=== PATIENT | male | born 1995 | race Caucasian/White ===

== ENCOUNTER 2020-08-29 12:28 | Emergency (ER) | payer OTHER, SELFPAY ==
[2020-08-29 13:05] VITALS: BP 136/98; PULSE 126; RESP 16; TEMP 37.1; O2SAT 98
--- NOTE | 2020-08-29 13:31 | ED.PSYCH ---
HPI - Psych General Chief Complaint: Psychiatric Symptoms Stated Complaint: panic attack Source: patient Mode of arrival: ambulatory Limitations: no limitations History of Present Illness HPI Narrative: this is a 25-year-old with history of anxiety and panic attacks currently prior to arrival was having a panic attack with some shortness of breath with a chest tightness with no fever chills no cough no chest pain no abdominal pain no diarrhea constipation complaint: other ( Panic attack) Onset (ago): hour(s) Duration: other ( has since resolved) History of same: Yes Relieving factors: none Exacerbating factors: none Review of Systems Review of Systems: All systems reviewed & are unremarkable except as noted in HPI and below PMFSH Past Medical History Medical History Anxiety Exam Const: General: no acute distress Orientation/consciousness: patient oriented x3 HENMT: Head: normal to inspection Eyes: Conjunctivae: conjunctivae normal Pupils: Equal, round and reactive pupils present Neck: Neck: normal visual inspection, no lymphadenopathy and no meningeal signs Chest: Chest palpation & inspection: normal inspection of the chest Resp: Effort & Inspection: normal respiratory effort Auscultation: clear to auscultation bilaterally Cardio: Rate: regular rate Rhythm: regular rhythm GI: GI Palp: Yes Soft to palpation Urinary Catheter: Urinary Catheter: patent and draining Back/Spine/Pelvis: Back: no CVA tenderness Skin: General skin exam: normal color Rashes: no rashes Neuro: General: patient oriented x3 and moves all extremities Psych: Mental Status: mental status grossly normal Course Course Emergency Course: patient with some panic attacks in after reassessment is doing much better, advised patient to follow-up with primary care physician and will be sending some anti anxiety medicine to a local pharmacy. Critical Care Time Critical Care Time Critical Care Time: No Discharge Plan Discharge Clinical Impression: Anxiety Patient Disposition: Home, Self-Care Condition: Stable Instructions: Antibiotic Form, Anxiety (ED) Additional Instructions: follow-up with primary care physician within 1 week for further evaluation and treatment, take medicine as prescribed. Prescriptions: New alprazolam [Xanax] 0.5 mg tablet 0.5 mg PO TID PRN (Reason: anxiety) Qty: 30 RF: 0 Follow-up/Referrals: UNKNOWN,DOCTOR [Primary Care Provider] - Time of Disposition: 13:36
[2020-08-29 13:55] VITALS: PULSE 111; RESP 15
== END 2020-08-29 13:55 | disposition home or self-care (01) ==
PROVIDERS: Emergency Provider Emergency Medicine
DX: F41.9 Anxiety disorder, unspecified (principal)
CPT/HCPCS: 99283

== ENCOUNTER 2020-09-06 05:25 | Emergency (ER) | payer OTHER, SELFPAY ==
[2020-09-06 05:48] VITALS: BP 129/88; PULSE 98; RESP 20; TEMP 36.2; O2SAT 98
[2020-09-06] MEDS: ONDANSETRON HCL ODT 4 MG TABLET PO (06:11)
[2020-09-06] MEDS: MAG HYDROX/ALUMINUM HYD/SIMETH 30 ML, PHENobarb/HYOSCY/ATROPINE/SCOP 32.4 MG, LIDOCAINE... PO (06:12)
--- NOTE | 2020-09-06 06:13 | ED.ABDPAIN ---
HPI - Abdominal Pain General Chief Complaint: Abdominal Pain Stated Complaint: Upper abdominal pain. Source: patient Mode of arrival: ambulatory History of Present Illness HPI narrative: This is a 25-year-old transgender transitioning to a female currently on spironolactone, has a history of anxiety and depression was seen last week in the emergency department and treated for anxiety. Patient followed up with her primary care physician and is currently taking Lexapro. Patient has been having epigastric discomfort that started earlier this this morning with some nausea, with some no chest pain no shortness of breath the abdominal discomfort is epigastric in nature and has some burning component. No fever chills no diarrhea constipation. MD elicited complaint: abdominal pain Pertinent past history: none Onset (ago): hour(s) Pain Consistency: intermittent Location: epigastric Severity: mild Quality: burning Radiation: epigastric Migration to: no migration Exacerbating factors: nothing Relieving factors: nothing Associated symptoms: nausea Related Data Home Medications Medication Instructions Recorded Confirmed estradiol 1 mg tablet 4 mg PO DAILY tablet 09/03/20 09/06/20 progesterone micronized 100 mg 100 mg PO QAM 09/03/20 09/06/20 capsule spironolactone 100 mg tablet 100 mg PO DAILY 09/03/20 09/06/20 venlafaxine 75 mg PO DAILY 09/06/20 09/06/20 Allergies Allergy/AdvReac Type Severity Reaction Status Date / Time fluticasone Allergy mouth Verified 09/03/20 13:01 [From Advair Diskus] tingles salmeterol Allergy mouth Verified 09/03/20 13:01 [From Advair Diskus] tingles Review of Systems Review of Systems: All systems reviewed & are unremarkable except as noted in HPI and below PMFSH Past Medical History Medical History Anxiety Social History Social History Smoking packs per day: 0 Smoking cigarettes per day: 0.0 Smoking status: Never smoker Alcohol intake: never Substance use: current Substance use type: marijuana Additional living arrangements comments: lives with her partner Gender identity (if verbalized by the patient): Transgender Female Exam Const: General: no acute distress and alert Orientation/consciousness: patient oriented x3 HENMT: Head: normal to inspection Eyes: Conjunctivae: conjunctivae normal Pupils: Equal, round and reactive pupils present Neck: Neck: normal visual inspection and no lymphadenopathy Chest: Chest palpation & inspection: normal inspection of the chest Resp: Effort & Inspection: normal respiratory effort Auscultation: clear to auscultation bilaterally Cardio: Rate: regular rate Rhythm: regular rhythm GI: GI Palp: Yes Soft to palpation and Yes Tenderness to palpation present (GI) ( Epigastric tenderness with palpation) : Testes: Testes normal Back/Spine/Pelvis: Back: no CVA tenderness Skin: General skin exam: normal color Rashes: no rashes Neuro: General: patient oriented x3, moves all extremities and no meningeal signs Extrem: General: normal to inspection and no pedal edema Psych: Mental Status: mental status grossly normal Affect: normal affect and Anxious affect present Attitude: cooperative Course Course Emergency Course: reassessment of patient, did respond well with the GI cocktail and Zofran. Vital Signs Vital signs: Vital Signs Temperature 36.2 C L 09/06/20 05:48 Pulse Rate 98 09/06/20 05:48 Respiratory Rate 09/06/20 05:48 Blood Pressure 129/88 09/06/20 05:48 Pulse Oximetry 98 09/06/20 05:48 Temperature 36.2 C L 09/06/20 05:48 Pulse Rate 98 09/06/20 05:48 Respiratory Rate 09/06/20 05:48 Blood Pressure 129/88 09/06/20 05:48 Pulse Oximetry 98 09/06/20 05:48 Critical Care Time Critical Care Time Critical Care Time: No Discharge Plan Discharge
[2020-09-06 06:28] VITALS: BP 122/78; PULSE 80; RESP 20; O2SAT 98
== END 2020-09-06 06:33 | disposition home or self-care (01) ==
PROVIDERS: Emergency Provider Emergency Medicine; PCP Nurse Practitioner Family
DX: F41.9 Anxiety disorder, unspecified (principal); K29.60 Other gastritis without bleeding
CPT/HCPCS: 99283; A9270

== ENCOUNTER 2025-03-16 06:06 | Emergency (ER) | payer BC, SELFPAY ==
--- NOTE | ~2025-03-16 | US_ITS ---
EXAMINATION: US venous doppler LE RT DATE: 03/16/2025 08:02 INDICATION: Right leg pain TECHNIQUE: Grayscale ultrasound images without and with compression and Doppler ultrasound images of the right lower extremity veins were obtained. COMPARISON: None. FINDINGS: The visualized portions of right common femoral vein, profunda (deep) femoral vein, femoral vein, pop liteal vein, peroneal veins, posterior tibial veins, and greater saphenous vein outflow are patent. IMPRESSION: 1. No deep venous thrombosis. Reviewed, dictated and finalized at location A.
[2025-03-16 06:10] VITALS: BP 120/77; PULSE 75; RESP 16; TEMP 37.1; O2SAT 100
--- NOTE | 2025-03-16 07:25 | ED_ITS ---
HPI - General Adult General Chief complaint: Extremity Injury, Lower Stated complaint: right thigh pain Time Seen by Provider: 03/16/25 07:04 History of Present Illness HPI narrative: 30-year-old transition female presents to the emergency department for right leg pain. Patient states they are currently on hormone therapy. Patient states they woke up in the middle of the night and they were having intense right leg pain. Pain did cause and have some lightheaded and dizziness. Pain has since improved. At time of evaluation patient has no tenderness to palpation and is in no distress. Patient does have history of hypertension. Patient denies any prior history of PE or DVT. Patient is currently on hormone therapy. At time of examination patient is well-appearing and in no distress. Related Data Home Medications ?Medication ?Instructions ?Recorded ?Confirmed ?Last Taken ?Type estradiol 1 mg tablet 4 mg PO DAILY 09/03/20 09/06/20 Unknown History progesterone micronized 100 mg 100 mg PO QAM 09/03/20 09/06/20 Unknown History capsule spironolactone 100 mg tablet 100 mg PO DAILY 09/03/20 09/06/20 Unknown History Allergies Allergy/AdvReac Type Severity Reaction Status Date / Time fluticasone (From Advair Allergy mouth Verified 03/16/25 07:42 Diskus) tingles salmeterol (From Advair Allergy mouth Verified 03/16/25 07:42 Diskus) tingles Review of Systems 2 Review of Systems: All systems reviewed & are unremarkable except as noted in HPI and below PMFSH Past Medical History Medical History Anxiety Social History Social History Smoking packs per day: 0 Smoking cigarettes per day: 0.0 Smoking status: Never smoker Alcohol intake: never Substance use: current Substance use type: marijuana Living arrangements: with family Additional living arrangements comments: lives with her partner Gender identity (if verbalized by the patient): Transgender Female Exam 2 Narrative: APPEARANCE: Well appearing, no pain, no distress, well-nourished. HEAD: normocephalic, atraumatic. EYES: PERRLA/EOMI, conjunctivae clear. NOSE: Normal no drainage EARS:TMS clear with good light reflex. THROAT: Pharynx clear, no exudate. NECK: Supple. No adenopathy, no masses. RESPIRATORY: Airway patent, respirations nonlabored. Clear to auscultation bilaterally, no rales, rhonchi, wheezing. CARDIOVASCULAR: Regular rate and rhythm without murmurs rubs or gallops. ABDOMINAL: Soft, nontender, nondistended, normal bowel sounds MUSCULOSKELETAL: Mild right thigh tenderness to palpation with no calf tenderness to palpation NEURO: Alert. Cranial nerves II through XII intact. Good gait. Good coordination SKIN: Warm, dry. Normal Color. No evidence of cellulitis Course Vital Signs Vital signs: Vital Signs Temperature 98.7 F 03/16/25 06:10 Pulse Rate 75 03/16/25 06:10 Respiratory Rate 16 03/16/25 06:10 Blood Pressure 120/77 03/16/25 06:10 Pulse Oximetry 100 03/16/25 06:10 Oxygen Delivery Room Air 03/16/25 06:10 Temperature 98.7 F 03/16/25 06:10 Pulse Rate 85 03/16/25 08:58 Respiratory Rate 18 03/16/25 08:58 Blood Pressure 121/87 03/16/25 08:58 Pulse Oximetry 100 03/16/25 08:58 Oxygen Delivery Room Air 03/16/25 06:10 Medical Decision Making MDM Narrative Medical decision making narrative: 30-year-old transitioning female present to the emergency department for evaluation for right leg pain. Patient is currently afebrile with no leukocytosis stable hemoglobin, INR is 1.0. No acute abnormalities on the CMP. Ultrasound was negative for DVT. No underlying evidence of infection or cellulitis. On re-evaluation patient denies any pain or complaints and is well- appearing. Suspect potential muscle spasm versus cramp. Patient was advised to take [id number] medications for pain control and have close follow-up with her primary care physician. Differential Diagnosis Differential Diagnosis: Cellulitis, DVT, muscular cramp, dehydration, electrolyte abnormality Vital Signs Vital Signs: Vital Signs Temperature 98.7 F 03/16/25 06:10 Pulse Rate 75 03/16/25 06:10 Respiratory Rate 16 03/16/25 06:10 Blood Pressure 120/77 03/16/25 06:10 Pulse Oximetry 100 03/16/25 06:10 Oxygen Delivery Room Air 03/16/25 06:10 Temperature 98.7 F 03/16/25 06:10 Pulse Rate 85 03/16/25 08:58 Respiratory Rate 18 03/16/25 08:58 Blood Pressure 121/87 03/16/25 08:58 Pulse Oximetry 100 03/16/25 08:58 Oxygen Delivery Room Air 03/16/25 06:10 Lab Data Lab results reviewed: Yes I reviewed the patient's lab results. 03/16/25 07:40 03/16/25 07:40 Labs: Lab Results 03/16/25 Range/Units 07:40 WBC 8.7 (4.5-10.0) K/mm3 RBC 5.04 (4.6-6.20) M/mm3 Hgb 14.4 (14.0-18.0) g/dL Hct 43.1 (42.0-52.0) % MCV 85.5 (80-100) fl MCH 28.6 (26-34) pg MCHC 33.4 (32-36) g/dl RDW 12.8 (11.5-14.5) % Plt Count 282 (150-375) k/mm3 MPV 9.1 (7.4-10.4) fl Immature Gran % (Auto) 0.2 (0-0.5) % Neut % (Auto) 69.3 (45.5-73.1) % Lymph % (Auto) 20.4 (18.3-44.2) % [place] % (Auto) 7.8 (2.6-8.5) % Eos % (Auto) 1.3 (0-4.4) % Baso % (Auto) 1.0 (0.2-1.2) % Lymph # (Auto) 1.77 (0.9-3.2) K/mm3 [place] # (Auto) 0.7 H (0.1-0.6) K/mm3 Eos # (Auto) 0.1 (0-0.3) K/mm3 Baso # (Auto) 0.1 (0.0-0.1) K/mm3 Abs Immat Gran (auto) 0.02 (0.00-0.031) K/mm3 Absolute Neuts (auto) 6.0 (1.3-6.7) K/mm3 Absolute Nucleated RBC 0.000 (0.0-0.012) K/mm3 Nucleated RBC % 0.0 (0.0-0.2) % PT 13.3 (11.1-14.7) Seconds INR 1.0 APTT 28.9 (22.3-36.8) Seconds Sodium 135 L (137-145) mmol/L Potassium 3.5 (3.4-5.0) mmol/L Chloride 102 (98-107) mmol/L Carbon Dioxide 27 (22-30) mmol/L Anion Gap 6 (4-12) mmol/L BUN 11 (9-20) mg/dL Creatinine 0.68 L (0.7-1.3) mg/dL Estim Creat Clear Calc 142 ml/min Estimated GFR > 60 (59 - ) Glucose 98 (65-110) mg/dL Calcium 9.0 (8.4-10.2) mg/dL Total Bilirubin 0.7 (0.2-1.3) mg/dL AST 20 (17-59) U/L ALT 16 (6-50) U/L Alkaline Phosphatase 76 (38-126) U/L Total Protein 7.7 (6.3-8.2) g/dL Albumin 4.4 (3.5-5.1) g/dL Imaging Data Radiologist's impression: Impressions Venous Doppler Study 03/16/25 08:06 IMPRESSION: 1. No deep venous thrombosis. Discharge Plan Discharge Clinical Impression: Acute leg pain Patient Disposition: Home Condition: Stable Instructions: Antibiotic Form, Leg Pain (ED) Additional Instructions: Tylenol and ibuprofen for pain control. Have close follow-up with your primary care physician. If you have any worsening symptoms then please call or return to the emergency department. 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
--- OUTSIDE RECORDS SUMMARY | 2025-03-16 07:40 | XMS_ITS | Clinical Summary ---
Author Organization [facility] Address [address] [place] [id number] Care Team Providers Care French Binding Folder Name Role Phone Unknown, Notinfile Primary Care Provider Unavail able Allergies Active Allergy Reactions Criticality Noted Date Comments Fluticasone Propion-Salmeterol Hives Medium 12/28 Medications traMADoL (ULTRAM) 50 mg tablet Take 1 tablet (50 mg total) by mouth every 6 (six) hours 20 tablet 12/28/2021 Active Social History Tobacco Use Types Packs/Day Years Used Date Smoking Tobacco: Never Assessed Personal Safety Answer Date Recorded Getting School Help Needed Not on file 10/16 Comments Unknown Sex and Gender Information Value Date Recorded Sex Assigned at Not on file Legal Sex Female 8:26 AM CDT Gender Identity Not on file Sexual Orientation Not on file Last Filed Vital Signs Vital Sign Reading Time Taken Comments Blood Pressure 132/94 12/28/2021 3:05 PM CDT Pulse 69 12/28/2021 3:05 PM CDT Temperature 36.7 C (98.1 F) 12/28/2021 8:30 AM CDT Respiratory Rate 18 12/28/2021 3:05 PM CDT Oxygen Saturation 100% 12/28/2021 3:05 PM CDT Inhaled Oxygen Concentration - - Weight 76.6 kg (168 lb 14 oz) 12/28/2021 8:30 AM CDT Height 162.6 cm (5' 4) 12/28/2021 8:30 AM CDT Body Mass Index 28.99 12/28/2021 8:30 AM CDT Plan of Treatment Not on file Insurance [employer] OPEN ACCESS Care Teams French Binding Folder Relationship Specialty Start Date End Date Unknown, Notinfile PCP - General 12/28/21
--- OUTSIDE RECORDS SUMMARY | 2025-03-16 07:40 | XMS_ITS | Continuity of Care Document ---
Author Organization [facility] Address [address] [facility] [place] [address] Phone Care Team Providers Care Flue Dust Laborer Name Role Phone Simón Gomez MD Unavailable Unavailable Allergies, Adverse Reactions, Alerts Substance Reaction Status Criticality SALMETEROL XINAFOATE Oral paresthesias Active No Information FLUTICASONE PROPIONATE Oral paresthesias Active No Information Medications Medication Instructions Dosage Effective Dates (start - stop) Status Comments Norvasc 10 mg tablet take 1 tablet by or al route every day 10 MG - Active estradiol 1 mg tablet take 8 tablet by o ral route every day 8 MG - Active Procedures Procedure Date OFFICE/OUTPATIENT VISIT, EST PREV VISIT, EST, AGE 18-39 OFFICE/OUTPATIENT VISIT, EST PREV VISIT, NEW, AGE 18-39 OFFICE/OUTPATIENT VISIT, NEW Advance Directives Directive Yes / No Effective Date File Name No Information Encounters Encounter Description Practice Location Reason(s) For Visit Diagnoses Date Provider Providers Copied on Encounter OFFICE/OUTPAT IENT VISIT, EST [facility], [address] [place], [place], [id number], [place] tel:[phone] [facility] HTN (chief complaint) Essential (primary) hypertension [address] [place], [place], [id number] , [place]. tel:[phone] PREV VISIT, EST, AGE 18-39 [facility], [address] [place], [id number], [place] tel:[phone] [facility] physical (chief complaint) Encounter for general adult medical examination without abnormal findings 5 Gomez Simón. [address], [place], [place], [id number] , [place]. tel:[phone] OFFICE/OUTPAT IENT VISIT, EST [facility], [address], [place], [place], [id number], [place] tel:[phone] [facility] HTN (chief complaint) Essential (primary) hypertension [address], [place], [place], [id number] , [place]. tel:[phone] PREV VISIT, NEW, AGE 18-39 [facility], [address], [place], [place], [id number], [place] tel:[phone] [facility] physical (chief complaint) Encounter for general adult medical exam w abnormal findingsMuscle spasm of backEssential (primary) hypertension [address], [place], [place], [id number] , [place]. tel:[phone] Family History Family Member Type Diagnosis Age At Onset Mother Problem breast CA in remission 62 Father Problem Alive and well Sister Problem Alive and well Payers Payer name Insurance type Covered green party ID Authoriza ticelsa(s) [facility] CI [id number] Social History Type Description Quantity Date Captured Comments Alcohol Use Details Caffeine Use Details Unknown Tobacco Use Status Current non-smoker Smoking Status Never smoker Sex Female Vital Signs Date / Time: Height Weight BMI Pulse Rate Blood Pressure Temperature Respiratory Rate Body Surface Area Head Circumference BMI percentile Pulse Ox Inhaled Ox 3:57 PM 66.00 in 204.00 lbs 32.9 3 kg/m eter (2) 84 /min 140/88 mm[Hg] 98.2 F 16 /min Chief Complaint And Reason For Visit From encounter dated '12/26/2024 15:33'. HTN (chief complaint). Description: Pt has HTN pt takes norvasc 10 mg daily and her bp is ok today.Pt states that her bp is around 120/80 at home Pt denies any side effects from norvasc. Pt guido any swelling. Plan Of Treatment Date Type Action Status No Information History Of Present Illness Encounter Date Complaint History Of Prese nt Illness HTN Pt has HTN pt ta kes norvasc 10 mg daily and her bp is ok today. Pt states that her bp is around 120/80 at home Pt denies any side effects from norvasc. Pt guido any swelling. physical Pt needs annual physical Pt has intermittent HTN Pt is taking norvasc 5 mg daily. Her bp was 160/100 at home yesterday Pt did feel mild dizziness Pt denies any chest pain or headache. Pt also is under a lot of stress lately. Pt is on estrogen and progesterone currently for the transition. pt denies any other complaints Pt denies any swelling HTN Pt has persisten t HTN Pt denies any chest pain Pt has occasional headache but not consistent Pt denies any vision issue Pt denies any acute headache Her bp was high at endo office recently which was 150/100 Pt states that her bp is sometimes around 160 at home Pt is off spironolactone per endo. pt is on estrogen and progesterone currently. Pt has not had any surgery yet. physical Pt needs annual physical Pt c/o posterior neck pain with radiation to both side of upper shoulder since two weeks ago. Pt woke up with above Pt denies any radiculopathy to arms Pt denies any arm weakness or any tingling Pt denies any sore throat Pt took some ibuprofen and neck pain completely resolved yesterday morning. Pt c/o chronic low back pain for several years. Pt denies any sciatica Pt denies any injury Pt denies any loss of bowel or bladder control Pt does sit in front of computer all day with poor posture. Pt denies any other issue Pt is born male and he is on spironolactone and estradiol and he is changing to female. [facility] Pt denies any other complaints. Pt denies any acute low back pain Instructions Date Instruction Additional Infor mation No Information Assessments Type Assessment Date assessment Essential (primary) hypertension Mental Status Date Cognitive Assessment Orientation - [place] ed to time, place, person, situation.
--- OUTSIDE RECORDS SUMMARY | 2025-03-16 07:40 | XMS_ITS | Referral Summary ---
Author Organization [facility] Address [address] [place] [id number] Care Team Providers Care Manager Spring Name Role Phone Unknown, Notinfile Primary Care [...] Plan of Treatment Not on file Insurance [employer] OPEN ACCESS Care Teams Manager Spring Relationship Specialty Start Date End Date Unknown, Notinfile PCP - General 12/28/21
[2025-03-16] MEDS: LACTATED RINGERS 1,000 ML 999 ML IV CONT (07:41)
[2025-03-16 07:50] LABS: Hematocrit 43.1 % (42.0-52.0); Hemoglobin 14.4 g/dL (14.0-18.0); Immature Granulocyte Percent A 0.2 % (0-0.5); Lymphocytes Absolute Auto 1.77 K/mm3 (0.9-3.2); Mean Corpuscular HGB Conc 33.4 g/dl (32-36); Mean Corpuscular Hemoglobin 28.6 pg (26-34); Mean Corpuscular Volume 85.5 fl (80-100); Nucleated Red Blood Cells Absolute Auto 0.000 K/mm3 (0.0-0.012); Nucleated Red Blood Cells Perc 0.0 % (0.0-0.2); Platelet Count Result 282 k/mm3 (150-375); Red Blood Count 5.04 M/mm3 (4.6-6.20); White Blood Count 8.7 K/mm3 (4.5-10.0)
[2025-03-16 08:01] LABS: INR 1.0; Partial Thromboplastin Time 28.9 Seconds (22.3-36.8); Prothrombin Time 13.3 Seconds (11.1-14.7)
[2025-03-16 08:17] LABS: Alanine Aminotransferase 16 U/L (6-50); Albumin Level 4.4 g/dL (3.5-5.1); Alkaline Phosphatase 76 U/L (38-126); Anion Gap 6 mmol/L (4-12); Aspartate Amino Transferase 20 U/L (17-59); Bilirubin,Total 0.7 mg/dL (0.2-1.3); Blood Urea Nitrogen 11 mg/dL (9-20); Calcium 9.0 mg/dL (8.4-10.2); Carbon Dioxide 27 mmol/L (22-30); Chloride 102 mmol/L (98-107); Estimated CRCL calculation 142 ml/min; Estimated Glomerular Filt Rate > 60; Glucose 98 mg/dL (65-110); Potassium 3.5 mmol/L (3.4-5.0); Sodium 135 mmol/L (137-145); Total Protein 7.7 g/dL (6.3-8.2)
[2025-03-16 08:58] VITALS: BP 121/87; PULSE 85; RESP 18; O2SAT 100
== END 2025-03-16 08:59 | disposition home or self-care (01) ==
PROVIDERS: Emergency Provider Emergency Medicine; PCP Nurse Practitioner Family
DX: M79.604 Pain in right leg (principal); I10 Essential (primary) hypertension; F64.0 Transsexualism; F41.9 Anxiety disorder, unspecified; Z79.890 Hormone replacement therapy; Z79.899 Other long term (current) drug therapy
CPT/HCPCS: 36415; 80053; 85025; 85610; 85730; 93971; 96360; 99284; J7120